=== PATIENT | female | born 1965 | race Caucasian/White ===

== ENCOUNTER 2017-01-11 12:50 | Emergency (ER) | payer OTHER ==
[~2017-01-11] VITALS: Ht 180.3 cm; Wt 109.1 kg
[~2017-01-11 12:50] MED LIST: ATEN50TA2 PO; COLA100C5 PO; MOTR200T44 PO; OMEP20CA3 PO; PERCOCET PO; SIMV40TA2 PO
[2017-01-11] MEDS ORDERED: METO1TAB7 (13:01)
[2017-01-11] MEDS ORDERED: ONDANSETRON 4MG/2ML VIAL (J2405) IV ONE (13:30)
[2017-01-11] MEDS ORDERED: MORPHINE 2 MG/ML 1ML SYRINGE IV PRN (13:30)
[2017-01-11] MEDS ORDERED: NS 500 ML IV ONE (13:30)
[2017-01-11 13:54] LABS: BASO % 0.3 % (0.0-1.0); EOS # 0.1 10^3/uL (0.0-0.50); EOS % 0.6 % (0.0-3.0); IMMATURE GRANULOCYTE % 0.4 % (0-0); LYMPH # 1.9 10^3/uL (1.5-4.5); LYMPH % 20.2 % (24.0-44.0); MEAN CORPUSCULAR HGB CONC 33.7 g/dl (32.0-36.5); MONO # 0.6 10^3/uL (0.0-0.8); MONO % 6.5 % (0.0-5.0); NEUTROPHILS # 6.8 10^3/uL (1.8-7.7); PLATELET COUNT, AUTOMATED 273 10^3/uL (150-450); RED CELL DISTRIBUTION WIDTH 13.2 % (11.5-14.5); WHITE BLOOD COUNT 9.4 10^3/uL (4.0-10.0)
[2017-01-11 14:03] LABS: INR 1.03
--- NOTE | 2017-01-11 14:07 | REP ---
CHEST, PORTABLE: AP portable view of the chest is performed. There is no acute infiltrate or pulmonary edema. The heart appears to be at the upper limits of normal in size. Mediastinal silhouette is unchanged. IMPRESSION: No acute infiltrate. Signed by Reynold Kaur MD 01/11/2017 02:43 P
[2017-01-11 14:20] LABS: ALBUMIN 3.8 GM/DL (3.2-5.2); ALBUMIN/GLOBULIN RATIO 1.06 (1.00-1.93); ALKALINE PHOSPHATASE 111 U/L (45-117); ALT/SGPT 43 U/L (12-78); AMYLASE 39 U/L (25-115); ANION GAP 8 MEQ/L (8-16); AST/SGOT 27 U/L (15-37); BILIRUBIN,DIRECT < 0.1 MG/DL (0.0-0.2); BILIRUBIN,TOTAL 0.3 MG/DL (0.2-1.0); BLOOD UREA NITROGEN 14 MG/DL (7-18); CALCIUM LEVEL 9.2 MG/DL (8.5-10.1); CARBON DIOXIDE LEVEL 27 MEQ/L (21-32); CHLORIDE LEVEL 102 MEQ/L (98-107); CREATININE FOR GFR 0.73 MG/DL (0.55-1.02); GLOMERULAR FILTRATION RATE > 60.0 (>51); GLUCOSE, FASTING 149 MG/DL (70-105); POTASSIUM SERUM 3.8 MEQ/L (3.5-5.1); SODIUM LEVEL 137 MEQ/L (136-145); TOTAL PROTEIN 7.4 GM/DL (6.4-8.2)
[2017-01-11] MEDS ORDERED: ISOVUE-370 76% 100ML VIAL (Q9967) As Ordered ONE (14:25)
--- NOTE | 2017-01-11 15:03 | REP ---
The brain without IV contrast: There are no comparisons. There is no subdural or epidural hematoma. There is no edema, mass effect or midline shift. The ventricles are normal size and midline. The cortical stripe is unremarkable. The visualized paranasal sinuses and mastoid air cells are clear. Impression: Negative CT study of the brain. Signed by Reynold Preston MD 01/11/2017 02:55 P
--- NOTE | 2017-01-11 15:06 | REP ---
CT study of the cervical spine without contrast: History: Trauma. Technique: Helical scanning is acquired and overlapping 2 mm high resolution axial images were generated and reviewed at bone and soft tissue window settings. Coronal and sagittal multiplanar re-formations images are generated. CT findings: There is no evidence of cervical spine element fracture. No skull base fracture is seen. Cervical vertebral body heights are preserved. Alignment is normal. Facet joints are normally aligned bilaterally at each cervical level on multiplanar re-formations images. There is no evidence of intraspinal or paraspinal hematoma. No extra vertebral abnormality is seen. There are degenerative disc findings at C5-6 with disc space narrowing and anterior posterior osteophytic ridging. There is bilateral uncovertebral spurring at C5-6. Impression: Degenerative disc disease at C5-6, otherwise negative CT study of the cervical spine without contrast. No fracture seen. Signed by Calos Ortega MD 01/11/2017 02:58 P
--- NOTE | 2017-01-11 15:07 | REP ---
CT of the chest with IV contrast: There is no pneumothorax, hemothorax or pulmonary contusion. The thoracic aorta is unremarkable. There is no mediastinal hematoma. There are no fractures of the clavicles, scapula, ribs, vertebral bodies or sternum. Impression: Negative CT study of the chest. Signed by Reynold Preston MD 01/11/2017 02:59 P
--- NOTE | 2017-01-11 15:15 | REP ---
CT abdomen pelvis with IV contrast: There is no pneumoperitoneum or hemoperitoneum. There is no retroperitoneal hemorrhage. The hepatic parenchyma is homogeneous but hypodense compatible with hepato steatosis. The gallbladder, pancreas and spleen are unremarkable. There is a 2.5 cm right adrenal nodule. I would recommend follow-up CT without IV contrast or MRI for follow-up. The left adrenal is unremarkable. The kidneys are unremarkable. The abdominal aorta is unremarkable. The bowel and mesentery are unremarkable. Pelvis: The bladder is unremarkable. There is a hysterectomy. Vaginal cuff and adnexa are unremarkable. There are no fractures of the lumbar spine, pelvis or hips. Impression: Essentially negative CT scan of the abdomen pelvis except for hepato steatosis and a right adrenal nodule. Signed by Reynold Preston MD 01/11/2017 03:07 P
[2017-01-11] MEDS ORDERED: IBUP-1022 PO (15:22)
--- NOTE | 2017-01-11 15:22 | REP ---
LEFT KNEE, FIVE VIEWS: There is no evidence of an acute fracture, dislocation or intrinsic bone disease. IMPRESSION: No fracture or dislocation. Signed by Reynold Kaur MD 01/12/2017 05:41 P
[2017-01-11 15:33] VITALS: BP 150/98
--- NOTE | 2017-01-12 06:54 | ED PDOC ---
Post-Departure Follow-Up certified letter sent pertaining to radiology report Alicia Bowie MD Jan 12, 2017 06:54
== END 2017-01-11 15:35 | disposition home or self-care (01) ==
LOC: M ED 12:50
DX: S30.1XXA Contusion of abdominal wall, initial encounter (principal); S80.02XA Contusion of left knee, initial encounter; S20.212A Contusion of left front wall of thorax, initial encounter; V49.49XA Driver injured in collision with other motor vehicles in traffic accident, initial encounter; Y92.410 Unspecified street and highway as the place of occurrence of the external cause; Y93.89 Activity, other specified; Y99.8 Other external cause status; M50.30 Other cervical disc degeneration, unspecified cervical region; I10 Essential (primary) hypertension; F41.9 Anxiety disorder, unspecified; Z79.899 Other long term (current) drug therapy; Z91.030 Bee allergy status
CPT/HCPCS: 70450; 71010; 71260; 72125; 73564; 74177; 80048; 80076; 81001; 82150; 82550; 82553; 83605; 83690; 85025; 85610; 85730; 86850; 86900; 86901; 93041; 94760; 96361; 96374; 96375; 99284; J2405; Q9967